=== PATIENT | male | born 1970 | race Caucasian/White ===

== ENCOUNTER → 2016-07-16 | Outpatient (CLI) | payer OTHER ==
--- NOTE | 2016-07-16 10:55 | REP ---
Left knee series: Five views. History: Tendonitis. Joint pain. Twisting injury. Findings: Five views of the left knee demonstrate normal bones, joints, and soft tissues. No evidence of fracture or subluxation. Impression: Negative left knee series. Signed by Vsihal Cardenas MD 07/16/2016 03:27 P
== END ==
LOC: M WUC 10:20
PROVIDERS: ATTEND Physician Assistant
DX: M76.52 Patellar tendinitis, left knee (principal)

== ENCOUNTER → 2016-09-18 | Outpatient (REF) | payer OTHER | LOC: M LAB REF 10:38 | PROVIDERS: ATTEND Physician Assistant | DX: J02.9 Acute pharyngitis, unspecified (principal) ==

== ENCOUNTER → 2016-10-22 | Outpatient (REF) | payer OTHER ==
[2016-10-22 13:47] LABS: CONTROL LINE MONO INT CTR LINE PRESENT
[2016-10-24 00:06] LABS: Lyme Disease IgG/IgM Antibodie <0.91 ISR (0.00-0.90); Lyme Disease IgM Ab Quantitati <0.80 index (0.00-0.79)
== END ==
LOC: M LAB REF 12:25
PROVIDERS: ATTEND Nurse Practitioner Family
DX: J06.9 Acute upper respiratory infection, unspecified (principal)

== ENCOUNTER 2017-11-02 11:07 | Day surgery (SDC) | payer BC, OTHER ==
[~2017-11-02 11:07] MED LIST: LIDOCAINE 2% INJ 100 MG/5 ML SDV (FOR ANES.) As Ordered; PROPOFOL 200 MG/20 ML VIAL As Ordered
[2017-11-02] MEDS: NS 1,000 ML IV (11:26)
[2017-11-02] MEDS ORDERED: PROPOFOL 200 MG/20 ML VIAL As Ordered ×2 (12:07→12:15)
== END 2017-11-02 12:52 | disposition home or self-care (01) ==
LOC: M OPP 11:07
DX: Z12.11 Encounter for screening for malignant neoplasm of colon (principal); Z80.0 Family history of malignant neoplasm of digestive organs; K64.0 First degree hemorrhoids
CPT/HCPCS: G0105

== ENCOUNTER → 2018-03-11 | Outpatient (REF) | payer BC, OTHER | LOC: M LAB REF 21:37 | DX: J02.9 Acute pharyngitis, unspecified (principal) | CPT/HCPCS: 87070 ==

== ENCOUNTER → 2024-01-13 | Outpatient (CLI) | payer BC, OTHER | LOC: M RAD 15:12 | PROVIDERS: ATTEND Internal Medicine | DX: M25.562 Pain in left knee (principal) ==

== ENCOUNTER 2024-04-20 11:10 | Day surgery (SDC) | payer BC ==
[~2024-04-20] VITALS: Ht 177.8 cm; Wt 105.2 kg
[2024-04-20] MEDS ORDERED: propofoL 200 MG/20 ML VIAL As Ordered ONE (12:17)
[2024-04-20] MEDS ORDERED: fentaNYL 100 MCG/2 ML INJECTION As Ordered ONE (12:17)
[2024-04-20 12:58] VITALS: TEMP 98.1
[2024-04-20 13:15] VITALS: BP 141/97; O2SAT 97
== END 2024-04-20 13:19 | disposition home or self-care (01) ==
LOC: M OPP 11:10
PROVIDERS: ATTEND Surgery
DX: Z12.11 Encounter for screening for malignant neoplasm of colon (principal); D12.5 Benign neoplasm of sigmoid colon; D12.3 Benign neoplasm of transverse colon; Z90.49 Acquired absence of other specified parts of digestive tract; Z90.89 Acquired absence of other organs; Z80.0 Family history of malignant neoplasm of digestive organs
CPT/HCPCS: 45380; 88305; J3010

== ENCOUNTER 2024-07-05 11:11 | Observation (INO) | payer BC ==
[~2024-07-05] VITALS: Ht 172.7 cm; Wt 105.3 kg
[2024-07-05] MEDS ORDERED: ISOVUE-370 76% 100ML VIAL As Ordered ONE (11:25)
[2024-07-05 11:53] LABS: BASO % 0.6 % (0.0-1.0); EOS # 0.1 10^3/uL (0.0-0.5); EOS % 1.5 % (0.0-3.0); HEMATOCRIT 47.1 % (42.0-52.0); HEMOGLOBIN 15.9 g/dl (13.5-17.5); LYMPH # 1.4 10^3/uL (1.5-5.0); MEAN CORPUSCULAR HEMOGLOBIN 28.2 pg (27.0-33.0); MEAN CORPUSCULAR HGB CONC 33.8 g/dl (32.0-36.5); MEAN CORPUSCULAR VOLUME 83.7 fl (80.0-96.0); MONO # 0.5 10^3/uL (0.0-0.8); MONO % 7.1 % (2.0-8.0); NEUTROPHILS # 4.5 10^3/uL (1.5-8.5); NEUTROPHILS % 69.3 % (36.0-66.0); PLATELET COUNT, AUTOMATED 232 10^3/uL (150-450); RED BLOOD COUNT 5.63 10^6/uL (4.30-6.10); WHITE BLOOD COUNT 6.5 10^3/uL (4.0-10.0)
[2024-07-05 12:08] LABS: INR 0.91; PARTIAL THROMBOPLASTIN TIME 29.8 SECONDS (24.8-34.2); PROTHROMBIN TIME 12.6 SECONDS (12.5-14.5)
[2024-07-05 12:15] VITALS: BP 153/99; O2SAT 97
[2024-07-05 12:30] VITALS: BP 144/91; O2SAT 97
[2024-07-05] MEDS ORDERED: HOME MED LIST COMPLETE! XX SCH (14:20)
[2024-07-05] MEDS: CLOPIDOGREL 75 MG TAB PO SCH (15:39)
[2024-07-05] MEDS: ASPIRIN 81MG ENTERIC TABLET PO SCH (15:39)
[2024-07-05] MEDS: ENOXAPARIN 40MG/0.4ML SYRINGE (J1650 PER 10MG) SC SCH (15:40)
[2024-07-05 18:45] LABS: HEMOGLOBIN A1c 5.7 % (4.0-6.0)
[2024-07-05 20:25] VITALS: BP 148/78; TEMP 97.9; O2SAT 98
[2024-07-05] MEDS: ATORVASTATIN 20 MG TAB PO SCH (21:59)
[2024-07-06] MEDS ORDERED: ACETAMINOPHEN 325 MG TAB PO PRN (01:50)
[2024-07-06] MEDS: ACETAMINOPHEN 500 MG TAB PO PRN (02:08)
[2024-07-06 03:20] VITALS: BP 142/81; TEMP 97.9; O2SAT 94
[2024-07-06 06:03] LABS: HEMATOCRIT 46.7 % (42.0-52.0); MEAN CORPUSCULAR HGB CONC 34.3 g/dl (32.0-36.5); MEAN CORPUSCULAR VOLUME 81.6 fl (80.0-96.0); PLATELET COUNT, AUTOMATED 223 10^3/uL (150-450); RED BLOOD COUNT 5.72 10^6/uL (4.30-6.10); WHITE BLOOD COUNT 6.3 10^3/uL (4.0-10.0)
[2024-07-06 06:25] LABS: BLOOD UREA NITROGEN 10 MG/DL (9-23); CARBON DIOXIDE LEVEL 22 MMOL/L (20-31); CHLORIDE LEVEL 103 MMOL/L (98-107); CHOLESTEROL LEVEL 239 MG/DL (<200); CHOLESTEROL RISK RATIO 5.55 (<5); CREATININE FOR GFR 0.95 MG/DL (0.70-1.30); GLOMERULAR FILTRATION RATE > 60.0 (>56); GLUCOSE, FASTING 134 MG/DL (60-100); LDL CHOLESTEROL 176.6 MG/DL (<100); SODIUM LEVEL 136 MMOL/L (136-145); TRIGLYCERIDES LEVEL 97 MG/DL (<150)
[2024-07-06 09:26] VITALS: BP 151/90
[2024-07-06] MEDS: amLODIPine 5 MG TAB PO SCH (09:26)
[2024-07-06 12:00] VITALS: BP 143/92; TEMP 98.6; O2SAT 96
[2024-07-06] MEDS ORDERED: ASPI81TAEC PO (15:22)
[2024-07-06] MEDS ORDERED: AMLO1TAB24 PO (15:22)
[2024-07-06] MEDS ORDERED: ATOR80TA59 PO (15:22)
[2024-07-06] MEDS ORDERED: CLOP75TA2 PO (15:22)
== END 2024-07-06 16:31 | disposition home or self-care (01) ==
LOC: M ED 11:11 → M ED INP 11:12 → M MSPAV 20:25
PROVIDERS: ADMIT Internal Medicine; ATTEND Internal Medicine
DX: R29.810 Facial weakness (principal); R47.81 Slurred speech; H02.401 Unspecified ptosis of right eyelid; R42 Dizziness and giddiness; I10 Essential (primary) hypertension; E78.5 Hyperlipidemia, unspecified; Z90.89 Acquired absence of other organs; I67.82 Cerebral ischemia
CPT/HCPCS: 36415; 70450; 70496; 70498; 70551; 71045; 80047; 80048; 80061; 83036; 85025; 85027; 85610; 85730; 86850; 86900; 86901; 93005; 93041; 93306; 94760; 96372; 99285; J1650; Q9967

== ENCOUNTER 2025-02-12 17:50 | Emergency (ER) | payer BC ==
[~2025-02-12] VITALS: Ht 177.8 cm; Wt 89.8 kg
[~2025-02-12 17:50] MED LIST changes: +AMLO1TAB24 PO; +ASPI81TAEC PO; +ATOR80TA59 PO; +CLOP75TA2 PO; -LIDOCAINE 2% INJ 100 MG/5 ML SDV (FOR ANES.) As Ordered; -PROPOFOL 200 MG/20 ML VIAL As Ordered
[2025-02-12 19:38] VITALS: BP 126/75; TEMP 97.8; O2SAT 98
[2025-02-12] MEDS ORDERED: MELO15TA28 PO (22:46)
== END 2025-02-12 23:22 | disposition home or self-care (01) ==
LOC: M ED 17:50
DX: S86.112A Strain of other muscle(s) and tendon(s) of posterior muscle group at lower leg level, left leg, initial encounter (principal); Y92.9 Unspecified place or not applicable; Y93.9 Activity, unspecified; Y99.9 Unspecified external cause status; W01.0XXA Fall on same level from slipping, tripping and stumbling without subsequent striking against object, initial encounter; I10 Essential (primary) hypertension; E78.5 Hyperlipidemia, unspecified; Z79.1 Long term (current) use of non-steroidal anti-inflammatories (NSAID); Z79.899 Other long term (current) drug therapy